=== PATIENT | female | born 1935 ===

== ENCOUNTER 2016-11-21 07:08 | Emergency (ER) | payer MEDICARE, MEDICAID ==
[2016-11-21 08:38] LABS: BASO % 0.7 % (0.0-2.0); EOS # 0.2 K/uL (0.0-0.7); EOS % 3.6 % (0.0-4.0); LYMPH % 28.9 % (20.0-40.0); MEAN CELL VOLUME 89.9 fL (81.0-99.0); MEAN CORPUSCULAR HEMOGLOBIN 29.8 pg (27.0-31.0); MEAN CORPUSCULAR HGB CONC 33.2 g/dL (33.0-37.0); MEAN PLATELET VOLUME 10.1 fL (7.2-11.7); MONO # 0.7 K/uL (0.0-0.8); MONO % 10.1 % (0.0-10.0); NRBC % 0.1 % (0.0-2.0); RED CELL DISTRIBUTION WIDTH 13.6 % (11.5-14.5); WHITE BLOOD COUNT 6.9 K/uL (4.8-10.8)
[2016-11-21 08:47] LABS: CHLORIDE 100 mmol/L (98-107)
[2016-11-21 08:48] LABS: GFR AFRICAN-AMERICAN > 60; POTASSIUM 4.2 mmol/L (3.6-5.2); SODIUM 138 mmol/L (132-148)
[2016-11-21 08:49] LABS: ALB/GLOB RATIO 1.3 (1.0-2.1); ALKALINE PHOSPHATASE 85 U/L (38-126); ALT/SGPT 23 U/L (9-52); AST/SGOT 32 U/L (14-36); BILIRUBIN,TOTAL 0.9 mg/dL (0.2-1.3); BLOOD UREA NITROGEN 13 mg/dL (7-17); CARBON DIOXIDE 29 mmol/L (22-30); GLUCOSE,RANDOM 100 mg/dL (65-105); TOTAL PROTEIN 6.8 g/dL (6.3-8.3)
--- NOTE | 2016-11-21 08:53 | C.PDOC ---
History Of Present Illness 81 y/o female presents to the ED with complaints of epigastric abdominal pain, nausea and distention after eating for the past 3 months. Pt denies chest pain, SOB, diarrhea, fever, cough, vomiting, dysuria/hematuria. Time Seen by Provider: 11/21/16 07:33 Chief Complaint (Nursing): Medical Clearance History Per: Patient History/Exam Limitations: no limitations Onset/Duration Of Symptoms: Days Current Symptoms Are (Timing): Still Present Severity: Mild Past Medical History Reviewed: Historical Data, Nursing Documentation, Vital Signs Vital Signs: Last Vital Signs Temp 98.1 F 11/21/16 16:29 Pulse 74 11/21/16 16:29 Resp 18 11/21/16 16:29 BP 133/77 11/21/16 16:29 Pulse Ox 96 11/26/16 14:11 - Medical History PMH: HTN, Hyperlipidemia, Pneumonia ("EARLY THIS YR") Family History: States: No Known Family Hx - Social History Hx Tobacco Use: No Hx Alcohol Use: No Hx Substance Use: No - Immunization History Hx Tetanus Toxoid Vaccination: No Hx Influenza Vaccination: No Hx Pneumococcal Vaccination: No Review Of Systems Except As Marked, All Systems Reviewed And Found Negative. Constitutional: Negative for: Fever, Chills Cardiovascular: Negative for: Chest Pain, Palpitations Respiratory: Negative for: Cough, Shortness of Breath Gastrointestinal: Positive for: Nausea, Abdominal Pain. Negative for: Vomiting , Diarrhea Genitourinary: Negative for: Dysuria, Hematuria Physical Exam - Physical Exam Appears: Well, Non-toxic, No Acute Distress Skin: Warm, Dry, No Rash Head: Normacephalic Oral Mucosa: Moist Cardiovascular: Rhythm Regular Respiratory: Normal Breath Sounds, No Rales, No Rhonchi, No Wheezing Gastrointestinal/Abdominal: Bowel Sounds, Soft, Tenderness (epigastric), Other ( (-) Stacy's, (-) McBurney's) Back: Normal Inspection, No CVA Tenderness Extremity: Bilateral: Atraumatic Neurological/Psych: Oriented x3 ED Course And Treatment - Laboratory Results Result Diagrams: 11/21/16 08:34 11/21/16 08:34 ECG: Interpreted By Me, Viewed By Me (sinus bradycardia 44bpm, normal axis, no acute ST/T wave changes) ECG Interpretation: Abnormal O2 Sat by Pulse Oximetry: 96 (on room air) Pulse Ox Interpretation: Normal Progress Note: Plan: Blood work, UA and US of abdomen ordered and reviewed. Patient given IV toradol 15mg. - Physician Consult Information Physician Contacted: Isaías Jorge Jr. Outcome Of Conversation: Discussed patient with Dr. Jorge, he would like her to be kept for observation for abdominal pain, distebnion - Dr. Neff for GI. Disposition - Disposition Disposition: HOSPITALIZED Disposition Time: 11:05 Condition: STABLE Prescriptions: Polyethylene Glycol 3350 [Miralax] 17 gm PO DAILY #30 ml Pantoprazole [Protonix EC Tab] 40 mg PO DAILY #30 ect Instructions: Gas and Bloating (ED) Print Language: WOLOF - Clinical Impression Clinical Impression: Abdominal distension - Scribe Statement The provider has reviewed the documentation as recorded by the Sheila Alejandre Provider Attestation: All medical record entries made by the Kirstieibe were at my direction and personally dictated by me. I have reviewed the chart and agree that the record accurately reflects my personal performance of the history, physical exam, medical decision making, and the department course for this patient. I have also personally directed, reviewed, and agree with the discharge instructions and disposition.
[2016-11-21 10:34] LABS: URINE BILIRUBIN NEGATIVE (NEGATIVE); URINE BLOOD NEGATIVE (NEGATIVE); URINE COLOR Yellow (YELLOW); URINE GLUCOSE (UA) NORMAL (Normal); URINE KETONE NEGATIVE (NEGATIVE); URINE LEUKOCYTE ESTERASE NEG Leu/uL (Negative); URINE PROTEIN NEGATIVE (NEGATIVE); URINE UROBILINOGEN NORMAL mg/dL (0.2-1.0); WBC URINE < 1 /hpf (0-5)
--- NOTE | 2016-11-21 11:03 | US ---
Right upper quadrant abdominal ultrasound History: Epigastric pain. Comparison: None available. Technique: Real-time sonography was performed through the right upper quadrant of the abdomen. Findings: Liver: 12.3 centimeters in length. Normal echogenicity. Gallbladder: Within normal limits. Normal wall thickness of 2 millimeters. Common bile duct measures 3 millimeters, within normal limits. Visualized portions of the pancreas are preserved. Pancreatic tail not well visualized. Visualized aorta and IVC are preserved. Right kidney: 9.7 x 3.9 x 4.2 centimeters, within normal limits. Impression: Unremarkable sonographic evaluation of the abdomen.
--- NOTE | 2016-11-21 12:36 | CP.PCM.CON ---
<Porter Ridley - Last Filed: 11/21/16 14:43> History of Present Illness - History of Present Illness History of Present Illness: PGY4 GI Fellow Consult Note Patient is an 81yo female with PMHx significant for HTN and arthritis who presented to the ED today with abdominal discomfort. She states that for the past two weeks she has suffered with persistent diffuse abdominal bloating/ distention. She cannot identify any particular inciting event and denies any alleviating or aggravating factors. She has not used any prescription or OTC medications to treat her symptoms. Patient does note that she is taking fiber supplementation upwards of 3-4 times per day and admits to 2-3 bowel movements per day, suffering with constipation without fiber supplementation. She cannot identify any particular foods or activities that seem to make symptoms worse and does not have improvement in symptoms with defecation. Discussed case with the patient's PCP, Dr Jorge. Patient has been on NSAIDs for a number of years for OA pains as well as PPI therapy in the past without significant improvement in symptoms. Denies any weight loss, nausea, vomiting, diarrhea, hematochezia, melena. PMHx: See HPI PSHx: , right meniscus repair FHx: Discussed with patient and she denies any significant family history Social: Denies tobacco, EtOH or illicit drug use Endo: EGD 2 years ago at [facility] [place] - unremarkable per patient Review of Systems - Constitutional Constitutional: absent: Anorexia, Chills, Fatigue, Fever, Malaise, Weight Loss - EENT Eyes: absent: Change in Vision Nose/Mouth/Throat: absent: Sore Throat - Cardiovascular Cardiovascular: absent: Chest Pain, Dyspnea, Edema - Respiratory Respiratory: absent: Cough, Dyspnea, Excessive Mucous Production - Gastrointestinal Gastrointestinal: Bloating. absent: Abdominal Pain, Change in Stool Character, Constipation, Cramping, Diarrhea, Dyspepsia, Dysphagia, Hematemesis, Hematochezia, Loose Stools, Melena, Nausea, Odynophagia, Vomiting - Genitourinary Genitourinary: absent: Dysuria, Urinary Frequency, Urinary Urgency - Musculoskeletal Musculoskeletal: absent: Back Pain, Neck Pain - Integumentary Integumentary: absent: New Lesions, Rash - Neurological Neurological: absent: Dizziness, Numbness, Focal Weakness - Psychiatric Psychiatric: absent: Anxiety, Depression - Endocrine Endocrine: absent: Polydipsia, Polyphagia, Polyuria - Hematologic/Lymphatic Hematologic: absent: Easy Bleeding, Easy Bruising, Lymphadenopathy Past Patient History - Infectious Disease Hx of Infectious Diseases: None - Past Social History Smoking Status: Never Smoked - CARDIAC Hx Hypertension: Yes - PULMONARY Hx Pneumonia: Yes ("EARLY THIS YR") - NEUROLOGICAL Hx Neurological Disorder: No - HEENT Hx HEENT Problems: No - RENAL Hx Chronic Kidney Disease: No - ENDOCRINE/METABOLIC Hx Endocrine Disorders: No - HEMATOLOGICAL/ONCOLOGICAL Hx Blood Disorders: No - INTEGUMENTARY Hx Dermatological Problems: No - MUSCULOSKELETAL/RHEUMATOLOGICAL Hx Musculoskeletal Disorders: No - GASTROINTESTINAL Hx Gastrointestinal Disorders: No - GENITOURINARY/GYNECOLOGICAL Hx Genitourinary Disorders: No - PSYCHIATRIC Hx Substance Use: No - SURGICAL HISTORY Hx Section: Yes (X1) Hx Joint Replacement: Yes Other/Comment: Right knee - ANESTHESIA Hx Anesthesia: Yes Hx Anesthesia Reactions: No Meds Allergies/Adverse Reactions: Allergies Allergy/AdvReac Type Severity Reaction Status Date / Time No Known Allergies Allergy Verified 11/21/16 07:13 Physical Exam - Constitutional Appears: Non-toxic, No Acute Distress - Eye Exam Eye Exam: EOMI, PERRL - ENT Exam ENT Exam: Mucous Membranes Moist - Respiratory Exam Respiratory Exam: Clear to Auscultation Bilateral. absent: Rales, Rhonchi, Wheezes - Cardiovascular Exam Cardiovascular Exam: RRR, +S1, +S2 - GI/Abdominal Exam GI & Abdominal Exam: Normal Bowel Sounds, Soft. absent: Distended, Firm, Guarding, Rigid, Tenderness - Extremities Exam Extremities exam: Positive for: normal inspection. Negative for: pedal edema - Neurological Exam Neurological exam: Alert, CN II-XII Intact, Oriented x3 - Psychiatric Exam Psychiatric exam: Anxious, Normal Affect - Skin Skin Exam: Dry, Warm Results - Vital Signs Recent Vital Signs: Last Vital Signs Temp 98 F 11/21/16 10:24 Pulse 61 11/21/16 11:49 Resp 19 11/21/16 11:49 BP 125/67 11/21/16 11:49 Pulse Ox 98 11/21/16 11:49 - Labs Result Diagrams: 11/21/16 08:34 11/21/16 08:34 Assessment & Plan - Assessment and Plan (Free Text) Assessment: Patient is an 81yo female with PMHx significant for HTN and arthritis who presented to the ED today with abdominal discomfort. She states that for the past two weeks she has suffered with persistent diffuse abdominal bloating/ distention. -Dyspepsia -HTN -Osteoarthritis Plan: -Recommend discontinuation of fiber supplementation which can cause bloating -Miralax 17g PO QD PRN constipation, titrated to 1BM/day -Pantoprazole 40mg PO QAMAC - should be continued as long as patient is on NSAID therapy for OA -No alarm features which suggest emergent/urgent need for endoscopy -Vitals, lab work, U/S abdomen unremarkable -Recommend outpatient follow up and further evaluation at that time if needed - Date & Time Date: 11/21/16 Time: 12:50 <Adonis Neff - Last Filed: 11/21/16 14:52> Meds - Medications Medications: Current Medications Enoxaparin Sodium (Lovenox) 40 mg SC DAILY [facility] Ondansetron HCl (Zofran Inj) 4 mg IVP Q6 PRN PRN Reason: Nausea/Vomiting Pantoprazole Sodium (Protonix Inj) 40 mg IVP Q12 PATRICIA Simethicone (Mylicon Chew Tab) 80 mg PO QID PATRICIA Results - Vital Signs Recent Vital Signs: Last Vital Signs Temp 98.1 F 11/21/16 13:55 Pulse 60 11/21/16 13:55 Resp 16 11/21/16 13:55 BP 122/68 11/21/16 13:55 Pulse Ox 98 11/21/16 13:55 - Labs Result Diagrams: 11/21/16 08:34 11/21/16 08:34 Attending/Attestation - Attestation I have personally seen and examined this patient.: Yes I have fully participated in the care of the patient.: Yes I have reviewed all pertinent clinical information: Yes Notes (Text): 11/21/16 14:46 I have seen and examined patient with GI fellow. Agree with above documentation with the following additions. In brief, this is an 81 year old female with history of HTN, arthritis, who presents to hospital with complaint of abdominal pain. She describes persistent abdominal distention/bloating which has been present for over the past one year. She takes excessive amounts of fiber supplementation and typically has a bowel movement twice daily. She denies nausea, vomiting, diarrhea, fever/chills, weight loss, rectal bleeding, or change in bowel habits. She does use intermittent NSAIDs for relief of arthritis pain. She claims to have had an EGD 2 years ago which was normal according to patient, no prior colonoscopy. HTN Arthritis Abdominal pain Abdominal US reviewed by me showing no gross GI pathology - Diet as tolerated - Begin once daily PPI therapy for prophylaxis given ongoing NSAID use - Would suggest reducing amount of fiber intake as this may contribute to ongoing bloating and discomfort - Bowel regimen to prevent constipation - No planned GI intervention at this time, she would benefit from endoscopic evaluation which can be performed electively as outpatient. Will sign off case , please reconsult as necessary, thank you.
[2016-11-21 13:56] VITALS: TEMP 98.1
[2016-11-21] MEDS ORDERED: Simethicone 80 mg Chewtab PO SCH (14:00)
--- NOTE | 2016-11-21 16:10 | CP.PCM.DIS ---
Provider - Provider Date of Admission: 11/21/16 11:05 Attending physician: Isaías Vidal Jr, MD Primary care physician: DR. Vidal Consults: GI: Tawanda Time Spent in preparation of Discharge (in minutes): 45 Diagnosis - Discharge Diagnosis (1) Abdominal pain in female patient Status: Acute Comment: see hospital course Hospital Course - Lab Results Lab Results: Most Recent Lab Values WBC 6.9 K/uL (4.8-10.8) 11/21/16 08:34 RBC 4.67 Mil/uL (3.80-5.20) 11/21/16 08:34 Hgb 13.9 g/dL (11.0-16.0) 11/21/16 08:34 Hct 42.0 % (34.0-47.0) 11/21/16 08:34 MCV 89.9 fL (81.0-99.0) 11/21/16 08:34 MCH 29.8 pg (27.0-31.0) 11/21/16 08:34 MCHC 33.2 g/dL (33.0-37.0) 11/21/16 08:34 RDW 13.6 % (11.5-14.5) 11/21/16 08:34 Plt Count 170 K/uL (130-400) 11/21/16 08:34 MPV 10.1 fL (7.2-11.7) 11/21/16 08:34 Neut % (Auto) 56.7 % (50.0-75.0) 11/21/16 08:34 Lymph % (Auto) 28.9 % (20.0-40.0) 11/21/16 08:34 Heard % (Auto) 10.1 % (0.0-10.0) H 11/21/16 08:34 Eos % (Auto) 3.6 % (0.0-4.0) 11/21/16 08:34 Baso % (Auto) 0.7 % (0.0-2.0) 11/21/16 08:34 Neut # 3.9 K/uL (1.8-7.0) 11/21/16 08:34 Lymph # 2.0 K/uL (1.0-4.3) 11/21/16 08:34 Heard # 0.7 K/uL (0.0-0.8) 11/21/16 08:34 Eos # 0.2 K/uL (0.0-0.7) 11/21/16 08:34 Baso # 0.0 K/uL (0.0-0.2) 11/21/16 08:34 Sodium 138 mmol/L (132-148) 11/21/16 08:34 Potassium 4.2 mmol/L (3.6-5.2) 11/21/16 08:34 Chloride 100 mmol/L (98-107) 11/21/16 08:34 Carbon Dioxide 29 mmol/L (22-30) 11/21/16 08:34 Anion Gap 14 (10-20) 11/21/16 08:34 BUN 13 mg/dL (7-17) 11/21/16 08:34 Creatinine 0.5 MG/DL (0.7-1.2) L 11/21/16 08:34 Est GFR ( Amer) > 60 11/21/16 08:34 Est GFR (Non-Af Amer) > 60 11/21/16 08:34 Random Glucose 100 mg/dL (65-105) 11/21/16 08:34 Calcium 9.0 mg/dl (8.6-10.4) 11/21/16 08:34 Total Bilirubin 0.9 mg/dL (0.2-1.3) 11/21/16 08:34 AST 32 U/L (14-36) 11/21/16 08:34 ALT 23 U/L (9-52) 11/21/16 08:34 Alkaline Phosphatase 85 U/L (38-126) 11/21/16 08:34 Total Protein 6.8 g/dL (6.3-8.3) 11/21/16 08:34 Albumin 3.9 g/dL (3.5-5.0) 11/21/16 08:34 Globulin 2.9 gm/dL (2.2-3.9) 11/21/16 08:34 Albumin/Globulin Ratio 1.3 (1.0-2.1) 11/21/16 08:34 Lipase 113 U/L (23-300) 11/21/16 08:34 Urine Color Yellow (YELLOW) 11/21/16 10:27 Urine Clarity Clear (Clear) 11/21/16 10:27 Urine pH 6.0 (5.0-8.0) 11/21/16 10:27 Ur Specific Moro 1.008 (1.003-1.030) 11/21/16 10:27 Urine Protein Negative mg/dL (NEGATIVE) 11/21/16 10:27 Urine Glucose (UA) Normal mg/dL (Normal) 11/21/16 10:27 Urine Ketones Negative mg/dL (NEGATIVE) 11/21/16 10:27 Urine Blood Negative (NEGATIVE) 11/21/16 10:27 Urine Nitrate Negative (NEGATIVE) 11/21/16 10:27 Urine Bilirubin Negative (NEGATIVE) 11/21/16 10:27 Urine Urobilinogen Normal mg/dL (0.2-1.0) 11/21/16 10:27 Ur Leukocyte Esterase Neg Isaak/uL (Negative) 11/21/16 10:27 Urine WBC (Auto) < 1 /hpf (0-5) 11/21/16 10:27 - Hospital Course Hospital Course: 81 year old [place]araguan-speaking female with PMHx of HTN and HLD who presents to the ED with 15 days of abdominal discomfort. She cannot name an inciting event or trigger for her pain. She saw Dr. Vidal yesterday who recommended she go to [facility] for imaging and a GI consult. She describes her pain as gassy and diffuse with localization from the inguinal area up to her breasts. Does not report any aggravating or alleviating factors. In addition, she describes b/l leg pain and belching. She denies fever, chills, nausea, vomiting, diarrhea and constipation, hematochezia, melena, appetite changes. Patient was admitted for observation. ABUS was done and was unremarkable. GI was consulted, Dr. Neff. Labs were within normal limits. patient became very agitated in ED. She was upset that she was in ED bed for so long. She requested to leave. Dr. Vidal was informed and he spoke to GI. GI cleared the patient to go home. At that time, patient was deemed medically stable for discharge by Dr. Vidal. Discharge Plan - Discharge Medications Prescriptions: Polyethylene Glycol 3350 [Miralax] 17 gm PO DAILY #30 ml Pantoprazole [Protonix EC Tab] 40 mg PO DAILY #30 ect - Follow Up Plan Condition: STABLE Disposition: HOME/ ROUTINE Instructions: Acute Abdominal Pain (DC) Additional Instructions: Patient medically stable for discharge by Dr. VIDAL. patient is to take new medication Protonix 40 mg by mouth daily and Miralax by mouth daily. patient is to resume home medications as previously prescribed. Patient is to follow up with PMD and GI within 2-3 days pf discharge. Please return to ED if symptoms persist or condition worsens. All instructions stated above were discussed with patient in detail. He verbalized understanding and agreement. Referrals: Adonis Neff MD [Staff Provider] - Isaías Vidal Jr., MD [Medical Doctor] -
--- NOTE | 2016-11-21 16:10 | CP.PCM.HP ---
History of Present Illness - History of Present Illness History of Present Illness: CC: "Abdominal pain and bloating" 81 year old Estonian-speaking female with PMHx of HTN and HLD who presents to the ED with 15 days of abdominal discomfort. She cannot name an inciting event or trigger for her pain. She saw Dr. Jorge yesterday who recommended she go to [facility] for imaging and a GI consult. She describes her pain as gassy and diffuse with localization from the inguinal area up to her breasts. Does not report any aggravating or alleviating factors. In addition, she describes b/l leg pain and belching. She denies fever, chills, nausea, vomiting, diarrhea and constipation, hematochezia, melena, appetite changes. PMD: Dr. Jorge PMH: hypertension, hyperlipidemia, osteoarthritis, dyspepsia Meds: Lovenox 40mg SC QD, Zofran 4mg IVP Q6 PRN, Protonix 40mg IVP Q12, Simethicone 80mg PO QID Allergies:NKDA PSH: , right meniscus tear repair, unremarkable EGD at [facility] [place] 2 years ago per patient FH: Denies any significant family history Social: Denies tobacco, EtOH, illicit drug use Present on Admission - Present on Admission Any Indicators Present on Admission: No History of DVT/PE: No History of Uncontrolled Diabetes: No Urinary Catheter: No Decubitus Ulcer Present: No Review of Systems - Review of Systems All systems: reviewed and no additional remarkable complaints except Past Patient History - Infectious Disease Hx of Infectious Diseases: None - Past Social History Smoking Status: Never Smoked - CARDIAC Hx Hypertension: Yes - PULMONARY Hx Pneumonia: Yes ("EARLY THIS YR") - NEUROLOGICAL Hx Neurological Disorder: No - HEENT Hx HEENT Problems: No - RENAL Hx Chronic Kidney Disease: No - ENDOCRINE/METABOLIC Hx Endocrine Disorders: No - HEMATOLOGICAL/ONCOLOGICAL Hx Blood Disorders: No - INTEGUMENTARY Hx Dermatological Problems: No - MUSCULOSKELETAL/RHEUMATOLOGICAL Hx Musculoskeletal Disorders: No - GASTROINTESTINAL Hx Gastrointestinal Disorders: No - GENITOURINARY/GYNECOLOGICAL Hx Genitourinary Disorders: No - PSYCHIATRIC Hx Substance Use: No - SURGICAL HISTORY Hx Section: Yes (X1) Hx Joint Replacement: Yes Other/Comment: Right knee - ANESTHESIA Hx Anesthesia: Yes Hx Anesthesia Reactions: No Meds Home Medications: Home Medication List Medication Instructions Recorded Confirmed Type Pantoprazole [Protonix EC Tab] 40 mg PO DAILY #30 ect 11/21/16 Rx Polyethylene Glycol 3350 [Miralax] 17 gm PO DAILY #30 ml 11/21/16 Rx Allergies/Adverse Reactions: Allergies Allergy/AdvReac Type Severity Reaction Status Date / Time No Known Allergies Allergy Verified 11/21/16 07:13 Physical Exam - Constitutional Appears: Agitated - Head Exam Head Exam: ATRAUMATIC, NORMOCEPHALIC - Eye Exam Eye Exam: EOMI, Normal appearance Pupil Exam: PERRL - ENT Exam ENT Exam: Mucous Membranes Moist - Neck Exam Neck exam: Positive for: Normal Inspection - Respiratory Exam Respiratory Exam: Clear to Auscultation Bilateral, NORMAL BREATHING PATTERN - Cardiovascular Exam Cardiovascular Exam: REGULAR RHYTHM, +S1, +S2 - GI/Abdominal Exam GI & Abdominal Exam: Normal Bowel Sounds, Soft. absent: Tenderness - Extremities Exam Extremities exam: Positive for: normal capillary refill, pedal pulses present - Back Exam Back exam: absent: CVA tenderness (L), CVA tenderness (R) - Neurological Exam Neurological exam: Alert, CN II-XII Intact, Oriented x3 - Psychiatric Exam Psychiatric exam: Normal Affect, Normal Mood - Skin Skin Exam: Dry, Intact, Normal Color, Warm Results - Vital Signs Recent Vital Signs: Last Vital Signs Temp 98.1 F 11/21/16 13:55 Pulse 60 11/21/16 13:55 Resp 16 11/21/16 13:55 BP 122/68 11/21/16 13:55 Pulse Ox 98 11/21/16 13:55 - Labs Result Diagrams: 11/21/16 08:34 11/21/16 08:34 Assessment & Plan - Assessment and Plan (Free Text) Plan: 1. Abdominal Pain admit for observation GI consult, Dr. Neff, help appreciated Protonix 40 mg IVP Q12H Simethicone 80 mg PO QID Zofran PRN ABUS: unremarkable (see full report) f/u AM labs HHD 2. Prophylactic Measures Protonix 40 mg IVP Q12H Lovenox, SCDs
[2016-11-21 16:32] VITALS: BP 133/77; PULSE 74; RESP 18
[2016-11-22] MEDS ORDERED: Enoxaparin 40 mg Syringe SC SCH (10:00)
--- NOTE | 2016-11-22 11:48 | CARD ---
APPROVED REPORT EKG Measurement Heart [id number] <Conclusion> Marked sinus bradycardia Possible Left atrial enlargement Abnormal ECG
[2016-11-26 14:09] VITALS: O2SAT 96
== END 2016-11-21 17:30 | disposition home or self-care (01) ==
LOC: C.ER 07:08 → C.9E 11:05 → UNDOADMOB 11:05 → C.9E 16:39 → C.5T 16:39 → C.9E 17:17 → UNDODISOB 17:30 → C.ER 17:30
DX: R14.0 Abdominal distension (gaseous) (principal)
CPT/HCPCS: 76705; 80053; 81001; 83690; 85025; 93005; 96374; 99285; J1885

== ENCOUNTER 2016-12-03 11:06 | Emergency (ER) | payer MEDICARE, MEDICAID ==
[2016-12-03 12:41] LABS: BASO # 0.1 K/uL (0.0-0.2); BASO % 0.7 % (0.0-2.0); EOS # 0.2 K/uL (0.0-0.7); EOS % 2.6 % (0.0-4.0); LYMPH # 2.3 K/uL (1.0-4.3); LYMPH % 28.8 % (20.0-40.0); MEAN CELL VOLUME 90.3 fL (81.0-99.0); MEAN CORPUSCULAR HEMOGLOBIN 29.8 pg (27.0-31.0); MEAN PLATELET VOLUME 11.1 fL (7.2-11.7); MONO # 0.8 K/uL (0.0-0.8); MONO % 9.7 % (0.0-10.0); RED CELL DISTRIBUTION WIDTH 13.7 % (11.5-14.5); WHITE BLOOD COUNT 7.9 K/uL (4.8-10.8)
[2016-12-03 12:48] LABS: CHLORIDE 101 mmol/L (98-107)
[2016-12-03 12:49] LABS: POTASSIUM 4.1 mmol/L (3.6-5.2); SODIUM 138 mmol/L (132-148)
[2016-12-03 12:51] LABS: ALB/GLOB RATIO 1.3 (1.0-2.1); ALKALINE PHOSPHATASE 108 U/L (38-126); AST/SGOT 36 U/L (14-36); BILIRUBIN,TOTAL 0.8 mg/dL (0.2-1.3); BLOOD UREA NITROGEN 17 mg/dL (7-17); CARBON DIOXIDE 27 mmol/L (22-30); GFR AFRICAN-AMERICAN > 60; GLUCOSE,RANDOM 88 mg/dL (65-105); TOTAL PROTEIN 7.2 g/dL (6.3-8.3)
[2016-12-03 12:52] LABS: ALT/SGPT 23 U/L (9-52); CALCIUM 8.8 mg/dl (8.6-10.4)
--- NOTE | 2016-12-03 13:06 | RAD ---
HISTORY: chest pain COMPARISON: Chest x-ray performed 09/16/16, 06/19/12 TECHNIQUE: Chest, one view. FINDINGS: LUNGS: Mild biapical pleural thickening. Prominent interstitial markings appear chronic. Please note that chest x-ray has limited sensitivity for the detection of pulmonary masses. PLEURA: No significant pleural effusion identified. No definite pneumothorax . CARDIOVASCULAR: Cardiomegaly. Atherosclerotic calcifications of the aorta. OSSEOUS STRUCTURES: Degenerative changes. Appearance of the right AC joint stable. VISUALIZED UPPER ABDOMEN: Unremarkable. OTHER FINDINGS: None. IMPRESSION: Cardiomegaly. Prominent interstitial markings appear chronic. Mild biapical pleural thickening. No focal consolidation, significant pleural effusion, or definite pneumothorax.
--- NOTE | 2016-12-03 13:23 | C.PDOC ---
History Of Present Illness 81 yr old female with multiple medical problems, presents to the ER with complaints of heaviness in the abdomen associated with abdomen distention, heaviness to the legs and breast, states the pain comes and goes for the past 1 month. Patient was seen on November 21 in ED, seen by Dr. Jorge and was discharged the same day. Patient denies fever, chills, chest pain, SOB, nausea, vomiting, diarrhea, constipation, headache, weakness or numbness. Time Seen by Provider: 12/03/16 11:47 Chief Complaint (Nursing): Dizziness/Lightheaded History Per: Patient History/Exam Limitations: no limitations Onset/Duration Of Symptoms: Intermittent Episodes (1 month) Past Medical History Reviewed: Historical Data, Nursing Documentation, Vital Signs Vital Signs: Last Vital Signs Temp 98.8 F 12/03/16 15:05 Pulse 50 L 12/03/16 15:05 Resp 16 12/03/16 15:05 BP 109/70 12/03/16 15:05 Pulse Ox 98 12/03/16 15:05 - Medical History PMH: HTN, Hyperlipidemia, Pneumonia Family History: States: No Known Family Hx - Social History Hx Tobacco Use: No Hx Alcohol Use: No Hx Substance Use: No - Immunization History Hx Tetanus Toxoid Vaccination: No Hx Influenza Vaccination: No Hx Pneumococcal Vaccination: No Review Of Systems Except As Marked, All Systems Reviewed And Found Negative. Constitutional: Positive for: Other ((+) Heaviness to the breast ). Negative for: Fever, Chills Cardiovascular: Negative for: Chest Pain Respiratory: Negative for: Shortness of Breath Gastrointestinal: Positive for: Other ((+) Abdominal heaviness. ). Negative for : Nausea, Vomiting, Diarrhea, Constipation Musculoskeletal: Positive for: Other ((+) Heaviness to the legs) Neurological: Negative for: Weakness, Numbness, Headache Physical Exam - Physical Exam Appears: Well, Non-toxic, No Acute Distress Skin: Warm, Dry, No Rash Head: Atraumatic, Normacephalic Eye(s): bilateral: Normal Inspection, PERRL, EOMI Oral Mucosa: Moist Throat: Normal, No Erythema, No Exudate Chest: Symmetrical, No Tenderness Cardiovascular: Rhythm Regular, No Murmur Respiratory: Normal Breath Sounds, No Rales, No Rhonchi, No Stridor, No Wheezing Gastrointestinal/Abdominal: Soft, Tenderness (Mild diffuse tenderness), No Distention, No Guarding, No Rebound Extremity: Normal ROM, Other (+- Edema to the lower extremities) Neurological/Psych: Oriented x3, Normal Speech, Normal Motor ED Course And Treatment - Laboratory Results Result Diagrams: 12/03/16 12:36 12/03/16 12:36 ECG: Interpreted By Me ECG Rhythm: Sinus Bradycardia ECG Interpretation: No Acute Changes Interpretation Of ECG: No ST/T elevation or depression. Prior EKGs were reviewed and the findings are consists. Rate From EC (BPM) O2 Sat by Pulse Oximetry: 95 (RA ) - Other Rad CXR X-Ray: Viewed By Me, Read By Radiologist Interpretation: HISTORY: chest pain. COMPARISON: Chest x-ray performed , 06/19/12. TECHNIQUE: Chest, one view. FINDINGS: LUNGS: Mild biapical pleural thickening. Prominent interstitial markings appear chronic. Please note that chest x-ray has limited sensitivity for the detection of pulmonary masses. PLEURA: No significant pleural effusion identified. No definite pneumothorax . CARDIOVASCULAR: Cardiomegaly. Atherosclerotic calcifications of the aorta. OSSEOUS STRUCTURES: Degenerative changes. Appearance of the right AC joint stable. VISUALIZED UPPER ABDOMEN: Unremarkable. OTHER FINDINGS : None. IMPRESSION: Cardiomegaly. Prominent interstitial markings appear chronic. Mild biapical pleural thickening. No focal consolidation, significant pleural effusion, or definite pneumothorax. Progress Note: Spoke to Dr. Jorge regarding the patient who states patient complaints are chronic. Dr. Jorge was made aware of all the lab results and EKG results. Request to have patient dischagred if possible and to follow up with half sole fitter. Patient to also follow up in Dr. Jorge office on at 10am. Medical Decision Making Medical Decision Making: PLAN: * CXR * EKG * Troponin * CBC Disposition Counseled Patient/Family Regarding: Studies Performed, Diagnosis - Disposition Referrals: Isaías Jorge Jr., MD [Medical Doctor] - Jose Antonio Vasquez MD [Staff Provider] - Disposition: HOME/ ROUTINE Disposition Time: 13:39 Condition: STABLE Additional Instructions: Please follow up with Dr. Jorge on December 07 at 10am. Follow up with Dr. Vasquez, Cardiology. Return to the Emergency Department with any other concern. Instructions: Bradycardia (ED), Weakness (ED) Forms: Gen Discharge Inst Ecuadorean - Clinical Impression Clinical Impression: Bradycardia, Body aches, Weakness - Scribe Statement The provider has reviewed the documentation as recorded by the Scribe Vanda Asher Provider Attestation: All medical record entries made by the Kirstieibe were at my direction and personally dictated by me. I have reviewed the chart and agree that the record accurately reflects my personal performance of the history, physical exam, medical decision making, and the department course for this patient. I have also personally directed, reviewed, and agree with the discharge instructions and disposition.
[2016-12-03 15:06] VITALS: BP 109/70; PULSE 50; RESP 16; TEMP 98.8
[2016-12-03 15:45] VITALS: O2SAT 95
--- NOTE | 2016-12-06 12:07 | CARD ---
APPROVED REPORT EKG Measurement Heart [id number] [id number] <Conclusion> Sinus bradycardia Possible Left atrial enlargement Borderline ECG
== END 2016-12-03 15:06 | disposition home or self-care (01) ==
LOC: C.ER 11:06
DX: R53.1 Weakness (principal); R00.1 Bradycardia, unspecified; R52 Pain, unspecified

== ENCOUNTER 2017-02-26 11:44 | Emergency (ER) | payer MEDICARE, MEDICAID ==
[2017-02-26 11:54] VITALS: BMI 29.2
[2017-02-26 11:58] VITALS: BP 106/65; PULSE 62; RESP 18; O2SAT 95
[2017-02-26 13:49] LABS: VENOUS BLOOD GAS BASE EXCESS -4.5 mmol/L (0.0-2.0); VENOUS BLOOD GAS PCO2 30 mmHg (40-60); VENOUS BLOOD GAS PO2 46 mm/Hg (30-55); VENOUS BLOOD PH 7.41 (7.32-7.43)
[2017-02-26 13:50] LABS: PROTHROMBIN TIME 11.3 SECONDS (9.7-12.2)
[2017-02-26] MEDS ORDERED: Potassium Chloride 20 mEq/15 ml LIQ UD PO STA (13:52)
--- NOTE | 2017-02-26 13:52 | RAD ---
HISTORY: Sepsis Patient COMPARISON: 12/03/2016. FINDINGS: LUNGS: Lung markings are accentuated. There is patchy airspace disease in the lower lobes. PLEURA: No significant pleural effusion identified, no pneumothorax apparent. CARDIOVASCULAR: Stable. OSSEOUS STRUCTURES: No significant abnormalities. VISUALIZED UPPER ABDOMEN: Normal. OTHER FINDINGS: None. IMPRESSION: Findings may represent pulmonary venous congestion and interstitial edema or interstitial pneumonitis. Question of bibasilar atelectasis/ pneumonia. Follow-up is advised.
[2017-02-26] MEDS ORDERED: Dextrose 25% Inj (10ml) IV STA (13:53)
[2017-02-26 13:55] LABS: ALBUMIN 3.4 g/dL (3.5-5.0)
[2017-02-26 13:56] VITALS: TEMP 99.4
[2017-02-26 13:57] LABS: BASO # 0.1 K/uL (0.0-0.2); BASO % 0.7 % (0.0-2.0); EOS # 0.1 K/uL (0.0-0.7); EOS % 1.1 % (0.0-4.0); GFR AFRICAN-AMERICAN > 60; GFR NON-AFRICAN AMERICAN > 60; HEMOGLOBIN 14.9 g/dL (11.0-16.0); LYMPH % 19.9 % (20.0-40.0); MEAN CELL VOLUME 91.4 fL (81.0-99.0); MEAN CORPUSCULAR HEMOGLOBIN 31.1 pg (27.0-31.0); MEAN PLATELET VOLUME 10.7 fL (7.2-11.7); MONO # 0.6 K/uL (0.0-0.8); MONO % 5.6 % (0.0-10.0); NEUT # 7.4 K/uL (1.8-7.0); NEUT % 72.7 % (50.0-75.0); NRBC % 0.1 % (0.0-2.0); RBC 4.81 Mil/uL (3.80-5.20); RED CELL DISTRIBUTION WIDTH 14.9 % (11.5-14.5); WHITE BLOOD COUNT 10.1 K/uL (4.8-10.8)
[2017-02-26 13:58] LABS: ALB/GLOB RATIO 1.1 (1.0-2.1); ALT/SGPT 55 U/L (9-52); AST/SGOT 33 U/L (14-36); BLOOD UREA NITROGEN 18 mg/dL (7-17); CALCIUM 8.3 mg/dl (8.6-10.4)
[2017-02-26 14:10] LABS: CK-MB 0.49 ng/mL (0.0-3.38)
--- NOTE | 2017-02-26 14:49 | C.PDOC ---
History Of Present Illness 81 y/o female presents to the ED with complaints of generalized body pain x2 weeks. Pt also reports urinary frequency, malodorous urine and headache since last night. She denies trauma or injury, fever, chills, chest pain, SOB, vomiting or any other complaints. Time Seen by Provider: 02/26/17 12:33 Chief Complaint (Nursing): Headache History Per: Patient History/Exam Limitations: no limitations Onset/Duration Of Symptoms: Days Current Symptoms Are (Timing): Still Present Severity: Mild Quality: "Pain" Preceeding Symptoms: None Recent travel outside of the [place]: No Past Medical History Reviewed: Historical Data, Nursing Documentation, Vital Signs Vital Signs: Last Vital Signs Temp 99.4 F 02/26/17 13:56 Pulse 62 02/26/17 11:53 Resp 18 02/26/17 11:53 BP 106/65 02/26/17 11:53 Pulse Ox 95 02/26/17 17:37 - Medical History PMH: HTN, Hyperlipidemia, Pneumonia Family History: States: Unknown Family Hx - Social History Hx Tobacco Use: No Hx Alcohol Use: No Hx Substance Use: No - Immunization History Hx Tetanus Toxoid Vaccination: No Hx Influenza Vaccination: No Hx Pneumococcal Vaccination: No Review Of Systems Except As Marked, All Systems Reviewed And Found Negative. Constitutional: Positive for: Other (generalized body pain). Negative for: Fever, Chills Cardiovascular: Negative for: Chest Pain Respiratory: Negative for: Shortness of Breath Gastrointestinal: Negative for: Vomiting Genitourinary: Positive for: Frequency, Other (malorodorous urine) Neurological: Positive for: Headache Physical Exam - Physical Exam Appears: Non-toxic, No Acute Distress Skin: Warm, Dry, No Rash Head: Atraumatic, Normacephalic Neck: Normal, Normal ROM, No Midline Cervical Tenderness, No Paracervical Tenderness, Supple Chest: Symmetrical, No Tenderness Cardiovascular: Rhythm Regular, No Murmur Respiratory: Normal Breath Sounds, No Rales, No Rhonchi, No Wheezing Gastrointestinal/Abdominal: Normal Exam, Soft, No Tenderness Back: Normal Inspection, No CVA Tenderness, No Vertebral Tenderness Extremity: No Pedal Edema Extremity: Bilateral: Atraumatic Neurological/Psych: Oriented x3, Normal Speech, Normal Cognition, Normal Cranial Nerves, Normal Motor, Normal Sensation ED Course And Treatment - Laboratory Results Result Diagrams: 02/26/17 13:36 02/26/17 13:36 O2 Sat by Pulse Oximetry: 95 (room air) Pulse Ox Interpretation: Normal - Other Rad CXR X-Ray: Viewed By Me, Read By Radiologist Interpretation: Accession No. : [id number]. Patient Name / ID : FERNY RENDON / [id number]. Exam Date : 02/26/2017 13:20:54 ( Approved ). Study Comment : Sex / Age : F / 81Y. Creator : Carolina Card MD. Dictator : Carolina Card MD. Manager Process Improvement : Information Services Consultant : Carolina Card MD. Approver2 : Report Date : 13:50:37. My Comment : . HISTORY: Sepsis Patient. COMPARISON: 12/03/2016. FINDINGS: LUNGS: Lung markings are accentuated. There is patchy airspace disease in the lower lobes. PLEURA: No significant pleural effusion identified, no pneumothorax apparent. CARDIOVASCULAR: Stable. OSSEOUS STRUCTURES: No significant abnormalities. VISUALIZED UPPER ABDOMEN: Normal. OTHER FINDINGS: None. IMPRESSION: Findings may represent pulmonary venous congestion and interstitial edema or interstitial pneumonitis. Question of bibasilar atelectasis/ pneumonia. Follow-up is advised. Progress Note: Plan: EKG, CXR, labs, VBS, UA, IV fluids. Patient refused CT head and refused to stay for observation. Risk of leaving AMA was discussed with patient in Guinean. Patient verbalized understanding and left AMA. Disposition - Disposition Disposition: AGAINST MEDICAL ADVICE Disposition Time: 17:32 Condition: UNKNOWN Additional Instructions: Follow up with your PMD within 1-2 days. Return to ED if feel worse. Instructions: Musculoskeletal Pain (ED), General Headache (ED) Print Language: URDU - Clinical Impression Clinical Impression: Headache, Muscle ache, Frequent urination at night - PA / EMERGENCY DEPARTMENT / Resident Statement MD/DO has reviewed & agrees with the documentation as recorded. - Scribe Statement The provider has reviewed the documentation as recorded by the Sheila Park All medical record entries made by the Sheila were at my direction and personally dictated by me. I have reviewed the chart and agree that the record accurately reflects my personal performance of the history, physical exam, medical decision making, and the department course for this patient. I have also personally directed, reviewed, and agree with the discharge instructions and disposition.
[2017-02-26] MEDS ORDERED: guaiFENesin DM 100 mg-10 mg/5 ml UD PO STA (17:08)
[2017-02-26] MEDS ORDERED: guaiFENesin DM 100 mg-10 mg/5 ml UD ONE (17:12)
[2017-02-26 17:17] LABS: SQUAMOUS EPITHIAL 3 /hpf (0-5); URINE BACTERIA RARE (<OCC); URINE BILIRUBIN NEGATIVE (NEGATIVE); URINE BLOOD NEGATIVE (NEGATIVE); URINE CLARITY Clear (Clear); URINE COLOR Yellow (YELLOW); URINE GLUCOSE (UA) NORMAL (Normal); URINE NITRATE NEGATIVE (NEGATIVE); URINE PROTEIN NEGATIVE (NEGATIVE); URINE UROBILINOGEN NORMAL mg/dL (0.2-1.0)
[2017-02-26 17:18] LABS: URINE LEUKOCYTE ESTERASE NEGATIVE Leu/uL (Negative)
--- NOTE | 2017-02-28 09:01 | CARD ---
APPROVED REPORT EKG Measurement Heart [id number] <Conclusion> Sinus bradycardia Otherwise normal ECG
== END 2017-02-26 17:53 | disposition left against medical advice (07) ==
LOC: C.ER 11:44
DX: M79.1 Myalgia (principal); R51 Headache; R35.0 Frequency of micturition; I10 Essential (primary) hypertension; E78.5 Hyperlipidemia, unspecified

== ENCOUNTER 2017-08-08 10:43 | Emergency (ER) | payer MEDICARE, MEDICAID ==
[2017-08-08 10:43] VITALS: BMI 29.2
[2017-08-08 11:01] VITALS: PULSE 60; TEMP 98.4
[2017-08-08 11:04] VITALS: BP 151/78; RESP 18; O2SAT 95
--- NOTE | 2017-08-08 11:16 | C.PDOC ---
History Of Present Illness 82 y/o female presents to the ER for memory problems which have been present for over 6 months. Patient reports that she has ringing in her ears sometimes. Patient states that she saw her PMD and he gave her a referral for neurology. She reports that she has an appointment for neurology next month. Patient denies having any visual changes, facial droop, slurred speech, extremity weakness, and sensory changes. Time Seen by Provider: 08/08/17 11:05 Chief Complaint (Nursing): ENT Problem History Per: Patient History/Exam Limitations: no limitations Onset/Duration Of Symptoms: Days Current Symptoms Are (Timing): Still Present Severity: Moderate Past Medical History Reviewed: Historical Data, Nursing Documentation, Vital Signs Vital Signs: Last Vital Signs Temp 98.4 F 08/08/17 11:01 Pulse 60 08/08/17 11:01 Resp 18 08/08/17 11:01 BP 151/78 H 08/08/17 11:01 Pulse Ox 95 08/08/17 20:43 - Medical History PMH: HTN, Hyperlipidemia, Pneumonia Surgical History: No Surg Hx Family History: States: No Known Family Hx - Social History Hx Tobacco Use: No Hx Alcohol Use: No Hx Substance Use: No - Immunization History Hx Tetanus Toxoid Vaccination: No Hx Influenza Vaccination: No Hx Pneumococcal Vaccination: No Review Of Systems Except As Marked, All Systems Reviewed And Found Negative. Constitutional: Negative for: Weakness Eyes: Negative for: Vision Change Neurological: Positive for: Other (memory problems). Negative for: Weakness, Numbness Physical Exam - Physical Exam Appears: Non-toxic, No Acute Distress, Other (awake, alert, comfortable) Skin: Normal Color, Warm Head: Atraumatic, Normacephalic Eye(s): bilateral: Normal Inspection, PERRL Nose: Normal Oral Mucosa: Moist Neck: Supple Chest: Symmetrical Cardiovascular: Rhythm Regular Respiratory: Normal Breath Sounds, No Accessory Muscle Use, No Rales, No Rhonchi , No Wheezing Extremity: Normal ROM Neurological/Psych: Oriented x3, Normal Speech, Normal Cognition, Normal Cranial Nerves, Normal Motor, Normal Sensation ED Course And Treatment O2 Sat by Pulse Oximetry: 95 (RA) Pulse Ox Interpretation: Normal Progress Note: Patient given referral for neurology and discharged. Disposition Counseled Patient/Family Regarding: Diagnosis, Need For Followup - Disposition Referrals: Alvaro Barron MD [Staff Provider] - Miguel Paula MD [Medical Doctor] - Disposition: HOME/ ROUTINE Disposition Time: 11:15 Condition: STABLE Additional Instructions: FOLLOW UP WITH NEUROLOGY WITHIN 1 WEEK RETURN TO EMERGENCY ROOM IF YOUR SYMPTOMS WORSEN SEGUIR CON NEUROLOGA DENTRO DE 1 SEMANA REGRESE A LA [facility] DE EMERGENCIA SI [facility] SNTOMAS FUNCIONAN Forms: [facility] (German), General Discharge Instructions Print Language: YI - POA Present On Arrival: None - Clinical Impression Clinical Impression: Referral needed, Memory loss - Scribe Statement The provider has reviewed the documentation as recorded by the Scribe Roxana Shine Provider Attestation: All medical record entries made by the Scribe were at my direction and personally dictated by me. I have reviewed the chart and agree that the record accurately reflects my personal performance of the history, physical exam, medical decision making, and the department course for this patient. I have also personally directed, reviewed, and agree with the discharge instructions and disposition.
== END 2017-08-08 11:35 | disposition home or self-care (01) ==
LOC: C.ER 10:43
DX: R41.3 Other amnesia (principal); I10 Essential (primary) hypertension; E78.5 Hyperlipidemia, unspecified